=== PATIENT | female | born 1970 | race Caucasian/White ===

== ENCOUNTER 2016-12-06 21:18 | Emergency (ER) | payer OTHER ==
[~2016-12-06] VITALS: Ht 165.1 cm; Wt 76.5 kg
[2016-12-06 21:48] VITALS: TEMP 37.1; Ht 165.1 cm; Wt 76.5 kg
[2016-12-06] MEDS ORDERED: IBUP600T44 PO (22:04)
[2016-12-06] MEDS ORDERED: DEXAMETHASONE SOD INJ 10 MG/ML VIAL IV ONE (22:30)
[2016-12-06] MEDS ORDERED: METOCLOPRAMIDE HCL INJ 5 MG/ML 2 ML VIAL IV STA (22:30)
[2016-12-06] MEDS ORDERED: DiphenhydrAMINE HCL 50 MG/ML VIAL IV STA (22:30)
[2016-12-06] MEDS ORDERED: SODIUM CHLORIDE 0.9% 1000ML 1,000 ML IV STA (22:30)
--- NOTE | 2016-12-06 22:50 | DIAGNOSTIC IMAGING REPORT ---
CHEST ONE VIEW PORTABLE CLINICAL HISTORY: Atypical chest pain COMPARISON STUDY: 10/28/2016 FINDINGS: The cardiac and mediastinal contours are normal. There is no evidence of focal pulmonary consolidation. There is no evidence of failure. No pleural effusions are visualized.[ IMPRESSION: No active disease in the chest. Electronically signed by: Gilles Sotomayor M.D. 12/06/2016 10:48 PM Dictated Date/Time: 12/06/2016 10:48 PM
[2016-12-06 23:22] LABS: BASO % 0.2 %; BASO ABS # 0.02 K/uL (0-0.2); COMPLETE YES; EOS % 0.6 %; HEMATOCRIT 44.8 % (37-47); IG% 0.2 %; LYMPH ABS # 1.54 K/uL (1.2-3.4); MEAN CELL VOLUME 99.3 fL (80-100); MEAN CORPUSCULAR HEMOGLOBIN 34.8 pg (25-34); MEAN PLATELET VOLUME 9.6 fL (7.4-10.4); MONO % 6.7 %; NEUT % 73.3 %; PLATELET COUNT 300 K/uL (130-400); RED BLOOD COUNT 4.51 M/uL (4.2-5.4)
[2016-12-06 23:25] VITALS: O2SAT 97
[2016-12-06 23:43] LABS: ALT/SGPT 28 U/L (12-78); BLOOD UREA NITROGEN 19 mg/dl (7-18); BUN/CREATININE RATIO 20.5 (10-20); C-REACTIVE PROTEIN < 0.29 mg/dl (0-0.29); CALCIUM 8.8 mg/dl (8.5-10.1); CARBON DIOXIDE 24 mmol/L (21-32); CHLORIDE 104 mmol/L (98-107); CREATININE 0.94 mg/dl (0.60-1.20); GLUCOSE 114 mg/dl (70-99); MAGNESIUM 2.2 mg/dl (1.8-2.4); POTASSIUM 3.5 mmol/L (3.5-5.1); SODIUM 139 mmol/L (136-145)
[2016-12-06 23:46] LABS: ALKALINE PHOSPHATASE 100 U/L (45-117); AST/SGOT 18 U/L (15-37)
[2016-12-06] MEDS ORDERED: MoRPHine SULFATE 4 MG/ML 1 ML CARP\\VIAL IV STA (23:47)
[2016-12-06 23:52] LABS: PARTIAL THROMBOPLASTIN RATIO 0.9; PROTHROMBIN TIME (PATIENT) 10.4 SECONDS (9.0-12.0)
[2016-12-06] MEDS ORDERED: LABETALOL HCL IV 5 MG/ML 20ML IV STA (23:55)
--- NOTE | 2016-12-07 00:12 | EMERGENCY ROOM VISIT NOTE ---
ED Visit Note First contact with patient: 22:18 The patient was seen and examined with Sofya Barnes PA-C. I agree with the history, physical and findings. Please see the note for disposition and details. Clinically the patient is doing very well. She was significantly hypertensive. CT scan reveals a moderate subarachnoid hemorrhage. The patient' s mental status is surprisingly excellent. Her pain was controlled with IV narcotics. The patient had blood pressure managed with IV labetalol as well as IV hydralazine. The patient did require multiple doses. Her initial map was over 135. She had significant systolic blood pressure elevations as well as diastolic elevations. Her blood pressure was managed well with the incremental boluses. She had blood pressures that were better controlled into the 120-140 range systolic. Her maps were 110-120. [facility] was consulted. The patient was accepted in transfer. There was some delay in transfer secondary to include weather. The patient was frequently reassessed and was doing well. I have personally spent greater than 30 minutes of critical care time in the direct management of this patient. This includes bedside care, interpretation of diagnostic studies, and testing, discussion with the patient, consultations, and other required patient management activities. Impression: 1. Subarachnoid hemorrhage 2. Hypertensive emergency Disposition: Transfer to [facility] 12/06/16 23:05 Red Blood Count 4.51, Mean Corpuscular Volume 99.3, Mean Corpuscular Hemoglobin 34.8, Mean Corpuscular Hemoglobin Concent 35.0, Mean Platelet Volume 9.6, Neutrophils (%) (Auto) 73.3, Lymphocytes (%) (Auto) 19.0, Monocytes (%) (Auto) 6.7, Eosinophils (%) (Auto) 0.6, Basophils (%) (Auto) 0.2, Neutrophils # (Auto) 5.93, Lymphocytes # (Auto) 1.54, Monocytes # (Auto) 0.54, Eosinophils # (Auto) 0.05, Basophils # (Auto) 0.02 12/06/16 23:05 Test 12/06/16 23:05 White Blood Count 8.10 K/uL (4.8-10.8) Red Blood Count 4.51 M/uL (4.2-5.4) Hemoglobin 15.7 g/dL (12.0-16.0) Hematocrit 44.8 % (37-47) Mean Corpuscular Volume 99.3 fL (80-100) Mean Corpuscular Hemoglobin 34.8 pg (25-34) Mean Corpuscular Hemoglobin Concent 35.0 g/dl (32-36) Platelet Count 300 K/uL (130-400) Mean Platelet Volume 9.6 fL (7.4-10.4) Neutrophils (%) (Auto) 73.3 % Lymphocytes (%) (Auto) 19.0 % Monocytes (%) (Auto) 6.7 % Eosinophils (%) (Auto) 0.6 % Basophils (%) (Auto) 0.2 % Neutrophils # (Auto) 5.93 K/uL (1.4-6.5) Lymphocytes # (Auto) 1.54 K/uL (1.2-3.4) Monocytes # (Auto) 0.54 K/uL (0.11-0.59) Eosinophils # (Auto) 0.05 K/uL (0-0.5) Basophils # (Auto) 0.02 K/uL (0-0.2) RDW Standard Deviation 44.9 fL (36.4-46.3) RDW Coefficient of Variation 12.3 % (11.5-14.5) Immature Granulocyte % (Auto) 0.2 % Immature Granulocyte # (Auto) 0.02 K/uL (0.00-0.02) Erythrocyte Sedimentation Rate 19 mm/hr (0-21) Prothrombin Time 10.4 SECONDS (9.0-12.0) Prothromb Time International Ratio 1.0 (0.9-1.1) Activated Partial Thromboplast Time 24.5 SECONDS (21.0-31.0) Partial Thromboplastin Ratio 0.9 Anion Gap 11.0 mmol/L (3-11) Est Creatinine Clear Calc Drug Dose 77.3 ml/min Estimated GFR () 84.9 Estimated GFR (Non- 73.3 BUN/Creatinine Ratio 20.5 (10-20) Calcium Level 8.8 mg/dl (8.5-10.1) Magnesium Level 2.2 mg/dl (1.8-2.4) Total Bilirubin 0.4 mg/dl (0.2-1) Direct Bilirubin < 0.1 mg/dl (0-0.2) Aspartate Amino Transf (AST/SGOT) 18 U/L (15-37) Alanine Aminotransferase (ALT/SGPT) 28 U/L (12-78) Alkaline Phosphatase 100 U/L (45-117) Troponin I < 0.015 ng/ml (0-0.045) C-Reactive Protein < 0.29 mg/dl (0-0.29) Total Protein 8.2 gm/dl (6.4-8.2) Albumin 3.9 gm/dl (3.4-5.0) Vital Signs Past 12 Hours Date Time Temp Pulse Resp B/P Pulse Ox O2 Delivery O2 Flow Rate FiO2 12/07/16 03:36 73 12/07/16 03:01 62 18 122/74 91 Room Air 12/07/16 02:45 125/78 12/07/16 02:31 70 19 148/92 94 Room Air 12/07/16 02:15 71 17 126/75 95 Room Air 12/07/16 01:59 66 19 132/80 94 Room Air 12/07/16 01:52 153/96 12/07/16 01:30 71 16 148/106 93 Room Air 12/07/16 01:25 69 148/101 12/07/16 01:07 75 16 130/84 96 Room Air 12/07/16 00:43 147/88 12/07/16 00:32 75 12 149/97 95 Room Air 12/07/16 00:16 178/98 12/07/16 00:13 170/95 12/06/16 23:59 181/111 12/06/16 23:33 85 12/06/16 23:27 94 17 180/112 99 Room Air 12/06/16 23:25 97 Room Air 12/06/16 23:25 97 Room Air 12/06/16 21:48 37.1 113 19 145/107 97 Room Air
[2016-12-07] MEDS ORDERED: MoRPHine SULFATE 4 MG/ML 1 ML CARP\\VIAL IV STA ×3 (00:18→01:30)
--- NOTE | 2016-12-07 00:33 | EMERGENCY ROOM VISIT NOTE ---
History First contact with patient: 22:18 Chief Complaint: HEADACHE Stated Complaint: SEVERE HEADACHE SINCE12/04. SHOOTING PAIN UP SPINE W History of Present Illness The patient is a 46 year old female who presents to the Emergency Room with complaints of nausea, photophobia and severe headache for the past 3 days. Patient states she's not had a migraine since 18 years ago. This is different than her typical migraine. Patient states she was putting on her makeup when the headache started. She then tried some Motrin and Excedrin. She then went out drinking alcohol with her friends. Patient states next day the headache was much worse. She describes the headache as throbbing, ranging in severity 9 out of 10 to the right side of the face and head. Nothing makes it better or worse. Patient denies chest pain, dyspnea, fever, chills, cough, congestion, numbness, tingling, loss of vision, dental pain, neck pain, abdominal pain, localized weakness. Patient does not have a family care doctor. She's not seen a doctor in quite sometime. She smokes. Her sister had a stroke a few years ago. Review of Systems See HPI for pertinent positives & negatives. A total of 10 systems reviewed and were otherwise negative. Past Medical/Surgical History Surgical Problems: (1) H/O: hysterectomy Family History Cancer Gallbladder disease Hypertension Social History Smoking Status: Current Every Day Smoker Alcohol Use: occasionally Drug Use: none Housing Status: lives alone Occupation Status: employed Current/Historical Medications Scheduled PRN Ibuprofen (Motrin), 600-800 MG PO Q6H PRN for Pain Allergies Coded Allergies: No Known Allergies (Unverified , 04/25/14) Physical Exam Vital Signs Date Time Temp Pulse Resp B/P Pulse Ox O2 Delivery O2 Flow Rate FiO2 12/07/16 00:13 170/95 12/06/16 23:59 181/111 12/06/16 23:33 85 12/06/16 23:27 94 17 180/112 99 Room Air 12/06/16 23:25 97 Room Air 12/06/16 23:25 97 Room Air 12/06/16 21:48 37.1 113 19 145/107 97 Room Air Physical Exam VITALS: Vitals are noted on the nurse's note and reviewed by myself. Vital signs stable. GENERAL: Pleasant female who appears in pain, in no acute distress, nondiaphoretic, well-developed well-nourished. SKIN: The skin was without rashes, erythema, edema, or bruising. There is no tenting of the skin. Capillary reflex less than 2 seconds. HEAD: Normocephalic atraumatic. EARS: External auditory canals clear, tympanic membranes pearly cannon without erythema or effusion bilaterally. EYES: Pupils equal round and reactive to light and accommodation. Conjunctivae without injection, sclerae without icterus. Extraocular movements intact. NOSE: Patent, turbinates without inflammation or discharge. No sinus tenderness. MOUTH: Mucous membranes moist. Pharynx without erythema or exudate. Uvula midline. Airway patent. Tongue does not deviate. NECK: Supple without nuchal rigidity. No lymphadenopathy. No thyromegaly. Cervical spine is nontender. No JVD. HEART: Regular rate and rhythm without murmurs gallops or rubs. LUNGS: Clear to auscultation bilaterally without wheezes, rales or rhonchi. No dullness to percussion. No retractions or accessory muscle use. ABDOMEN: Positive bowel sounds x 4. Normal tympanic percussion. Soft, nontender, without masses or organomegaly. Shepherd sign negative. No guarding or rebound tenderness. MUSCULOSKELETAL: No muscle atrophy, erythema, or edema noted. NEURO: Patient was alert and oriented to person place and time. Normal sensation to light and sharp touch. No focal neurological deficits. Right occipital outflow track tender to palpation. Cranial nerves II-12 grossly intact. No pronator drift. Cerebellar exam intact. Medical Decision & Procedures Laboratory Results 12/06/16 23:05 Red Blood Count 4.51, Mean Corpuscular Volume 99.3, Mean Corpuscular Hemoglobin 34.8, Mean Corpuscular Hemoglobin Concent 35.0, Mean Platelet Volume 9.6, Neutrophils (%) (Auto) 73.3, Lymphocytes (%) (Auto) 19.0, Monocytes (%) (Auto) 6.7, Eosinophils (%) (Auto) 0.6, Basophils (%) (Auto) 0.2, Neutrophils # (Auto) 5.93, Lymphocytes # (Auto) 1.54, Monocytes # (Auto) 0.54, Eosinophils # (Auto) 0.05, Basophils # (Auto) 0.02 12/06/16 23:05 Test 12/06/16 23:05 White Blood Count 8.10 K/uL (4.8-10.8) Red Blood Count 4.51 M/uL (4.2-5.4) Hemoglobin 15.7 g/dL (12.0-16.0) Hematocrit 44.8 % (37-47) Mean Corpuscular Volume 99.3 fL (80-100) Mean Corpuscular Hemoglobin 34.8 pg (25-34) Mean Corpuscular Hemoglobin Concent 35.0 g/dl (32-36) Platelet Count 300 K/uL (130-400) Mean Platelet Volume 9.6 fL (7.4-10.4) Neutrophils (%) (Auto) 73.3 % Lymphocytes (%) (Auto) 19.0 % Monocytes (%) (Auto) 6.7 % Eosinophils (%) (Auto) 0.6 % Basophils (%) (Auto) 0.2 % Neutrophils # (Auto) 5.93 K/uL (1.4-6.5) Lymphocytes # (Auto) 1.54 K/uL (1.2-3.4) Monocytes # (Auto) 0.54 K/uL (0.11-0.59) Eosinophils # (Auto) 0.05 K/uL (0-0.5) Basophils # (Auto) 0.02 K/uL (0-0.2) RDW Standard Deviation 44.9 fL (36.4-46.3) RDW Coefficient of Variation 12.3 % (11.5-14.5) Immature Granulocyte % (Auto) 0.2 % Immature Granulocyte # (Auto) 0.02 K/uL (0.00-0.02) Erythrocyte Sedimentation Rate 19 mm/hr (0-21) Prothrombin Time 10.4 SECONDS (9.0-12.0) Prothromb Time International Ratio 1.0 (0.9-1.1) Activated Partial Thromboplast Time 24.5 SECONDS (21.0-31.0) Partial Thromboplastin Ratio 0.9 Anion Gap 11.0 mmol/L (3-11) Est Creatinine Clear Calc Drug Dose 77.3 ml/min Estimated GFR () 84.9 Estimated GFR (Non- 73.3 BUN/Creatinine Ratio 20.5 (10-20) Calcium Level 8.8 mg/dl (8.5-10.1) Magnesium Level 2.2 mg/dl (1.8-2.4) Total Bilirubin 0.4 mg/dl (0.2-1) Direct Bilirubin < 0.1 mg/dl (0-0.2) Aspartate Amino Transf (AST/SGOT) 18 U/L (15-37) Alanine Aminotransferase (ALT/SGPT) 28 U/L (12-78) Alkaline Phosphatase 100 U/L (45-117) Troponin I < 0.015 ng/ml (0-0.045) C-Reactive Protein < 0.29 mg/dl (0-0.29) Total Protein 8.2 gm/dl (6.4-8.2) Albumin 3.9 gm/dl (3.4-5.0) Medications Administered Medications (Trade) Dose Ordered Sig/Emmanuel Route Start Time Stop Time Status Last Admin Dose Admin Dexamethasone Sodium Phosphate (Decadron Inj) 10 mg NOW ONCE IV 12/06/16 22:30 12/06/16 22:32 DC 12/06/16 23:17 10 MG Metoclopramide HCl (Reglan Inj) 10 mg NOW STAT IV 12/06/16 22:30 12/06/16 22:33 DC 12/06/16 23:17 10 MG Diphenhydramine HCl 12.5 mg 12.5 mg NOW STAT IV 12/06/16 22:30 12/06/16 22:33 DC 12/06/16 23:17 12.5 MG Sodium Chloride (Nss 1000ml) 1,000 ml @ 125 mls/hr Q8H STAT IV 12/06/16 22:30 12/07/16 06:29 12/06/16 23:17 125 MLS/HR Morphine Sulfate (MoRPHine SULFATE INJ) 4 mg NOW STAT IV 12/06/16 23:47 12/06/16 23:49 DC 12/06/16 23:53 4 MG Labetalol HCl (Normodyne IV) 20 mg NOW STAT IV 12/06/16 23:55 12/06/16 23:56 DC 12/07/16 00:05 20 MG ED Course Prior records/ancillary studies reviewed. Additional history obtained from friend. Triage Nursing notes reviewed. The patient's history was concerning for headache. Differential diagnosis: Etiologies such as migraine headache, meningitis, sinusitis, CO exposure, ICH, SAH, infection, tumor, headache, sinus thrombosis, arterial dissection, as well as others were entertained. Physical examination findings: As above. Non-focal. ER treatment provided: Decadron, Reglan, Benadryl, morphine, labetalol, IV fluids On reassessment the patient felt better. Diagnostics interpreted by me: ECG: Normal sinus, normal intervals, no acute ST-T wave changes. Impression normal sinus rhythm interpreted by myself The labs revealed stable H&H. Negative troponin, normal coags Imaging studies: CHEST ONE VIEW PORTABLE CLINICAL HISTORY: Atypical chest pain COMPARISON STUDY: 10/28/2016 FINDINGS: The cardiac and mediastinal contours are normal. There is no evidence of focal pulmonary consolidation. There is no evidence of failure. No pleural effusions are visualized.[ IMPRESSION: No active disease in the chest. Electronically signed by: Gilles Sotomayor M.D. CT HEAD: Diffuse subarachnoid hemorrhage along the basal cisterns, interhemispheric fissure, and bilateral frontotemporal lobes. Consider CT angiogram for further evaluation. No mass effect or midline shift. No evidence of acute cortical infarct. Radiologist: Eileen Pérez M.D. Study ready at 23:47 and initial results transmitted at 23:57 Critical Value Communications Clear Time Type Notes 12/06/16 23:52 Call Doctor Regarding Consultation: A consultation was placed with the [place] neurosurgeon, Dr. Dias. The case was discussed and diagnostics were reviewed. He recommends that the patient be transferred to his facility. He is accepting transfer. Patient was transferred via helicopter to [facility]. Transfer paperwork was filled out. This appears to be consistent with subarachnoid hemorrhage. Patient agrees to treatment plan of transfer to higher care level facility for neurosurgical evaluation as we did not have this at our current facility. Patient was neurovascularly and neurologically intact. Her blood pressure did rise while in the ER and was given labetalol. She was feeling better after being medicated as above. She had no deficits on exam. She was transferred via ALS to [facility] in stable condition. 2 IV lines were initiated. All paperwork and test results and to their facility. By the evaluation outlined above emergent etiologies such as meningitis, sinusitis, CO exposure, infection, temporal arteritis, tumor, sinus thrombosis, arterial dissection, as well as others were deemed relatively unlikely. The pt informed about the findings as listed above. All questions were answered and pleased with the treatment. Case reviewed with my attending Medical Decision as above Impression Primary Impression: Subarachnoid hemorrhage Additional Impression: Hypertensive urgency Critical Care I have personally spent greater than 30 minutes of critical care time in the direct management of this patient. This includes bedside care, interpretation of diagnostic studies, and testing, discussion with consultants, patient, and family members, and other required patient management activities. This 30 minutes is in excess of all separately billable procedures. Departure Information Dispostion Transfer Acute Care Facility Condition FAIR Referrals No Doctor, Assigned (PCP) Patient Instructions My [facility] Problem Qualifiers
[2016-12-07] MEDS ORDERED: LABETALOL HCL IV 5 MG/ML 20ML IV STA ×2 (00:44→02:36)
[2016-12-07] MEDS ORDERED: HydrALAZINE HCL 20 MG/ML VIAL IV. STA ×2 (01:30→01:57)
[2016-12-07] MEDS ORDERED: HYDROmorphone INJ 0.5 MG/0.5 ML SYR IV STA (02:36)
[2016-12-07 03:54] VITALS: BP 131/80; PULSE 63; O2SAT 93
[2016-12-07] MEDS ORDERED: ONDANSETRON INJ 2 MG/ML 2 ML VIAL IV STA (04:08)
[2016-12-07] MEDS ORDERED: HYDROmorphone INJ 2 MG/ML SYR/VIAL IV STA (04:08)
--- NOTE | 2016-12-07 07:12 | DIAGNOSTIC IMAGING REPORT ---
CT SCAN OF THE BRAIN WITHOUT IV CONTRAST CLINICAL HISTORY: Headache. COMPARISON STUDY: No priors. TECHNIQUE: Unenhanced axial CT scan of the brain is performed from the vertex to the skull base. Automated dose control exposure was utilized. CT DOSE: 537.48 mGy.cm FINDINGS: Brain parenchyma: Findings are consistent with subarachnoid hemorrhage. There is blood filling the suprasellar and quadrigeminal plate cisterns as well as along the anterior interhemispheric fissure. Subarachnoid blood is also seen filling the sylvian fissures bilaterally and along the cortical sulci, greatest in the frontotemporal region. There is no parenchymal hematoma, mass effect, or evidence of acute territorial ischemia by CT criteria. Alt[place]irano-white matter is preserved. No extra-axial fluid collection is seen. Ventricles, sulci, cisterns: Normal in configuration. No intraventricular blood is identified. Intracranial vasculature: The visualized intracranial vasculature at the skull base is normal in appearance. Calvarium: Unremarkable. Sinuses and mastoids: The visualized paranasal sinuses are clear. The mastoid air cells are well pneumatized. Orbits: The bony orbits are grossly intact. IMPRESSION: 1. Extensive subarachnoid hemorrhage as above, centered in the suprasellar cistern. The appearance raises concern for ruptured aneurysm. Consider CT angiogram of the brain for further assessment. 2. There is no parenchymal hematoma, midline shift, or evidence of acute territorial ischemia by CT criteria. Electronically signed by: Kd Echevarria M.D. 12/07/2016 7:11 AM Dictated Date/Time: 12/07/2016 7:07 AM
== END 2016-12-07 04:20 | disposition short-term general hospital (02) ==
LOC: C.EDB 21:19 → C.EDA 12-07 04:20
DX: I60.9 Nontraumatic subarachnoid hemorrhage, unspecified (principal); I16.0 Hypertensive urgency; F17.200 Nicotine dependence, unspecified, uncomplicated; Z90.710 Acquired absence of both cervix and uterus

== ENCOUNTER 2017-08-13 17:54 | Emergency (ER) | payer OTHER ==
[~2017-08-13] VITALS: Ht 166.4 cm; Wt 75.9 kg
[~2017-08-13 17:54] MED LIST: IBUP600T44 PO
[2017-08-13 17:59] VITALS: Ht 166.4 cm; Wt 75.9 kg
[2017-08-13] MEDS ORDERED: IBUPROFEN 600 MG TAB PO STA (18:07)
[2017-08-13] MEDS ORDERED: ATOR-22 PO (18:15)
[2017-08-13] MEDS ORDERED: OXYCODONE/ACETAMINOPHEN 5-325 TAB PO ONE (18:15)
[2017-08-13] MEDS ORDERED: IBUP-1050 PO (18:15)
[2017-08-13] MEDS ORDERED: [UNRECOGNIZED DRUG - CODE] PO (18:15)
--- NOTE | 2017-08-13 18:35 | EMERGENCY ROOM VISIT NOTE ---
History First contact with patient: 18:04 Chief Complaint: FALL Stated Complaint: FELL, POSSBLE BROKE NOSE AND ARM History of Present Illness The patient is a 47 year old female who presents to the Emergency Room with complaints of a 47-year-old female who presents to the emergency department after a fall 2 days ago. The patient is a history of subdural hematoma and notes that she often has falls. She is currently being worked up for this. The patient is more concerned about her shoulder for which she is having a lot of pain. In addition she is also complaining of pain to her nose. She has a black eye. She is requesting pain medication. She denies any headache or neck pain. Review of Systems See HPI for pertinent positives & negatives. A total of 10 systems reviewed and were otherwise negative. Past Medical/Surgical History Surgical Problems: (1) H/O: hysterectomy SDH Family History Cancer Gallbladder disease Hypertension Social History Smoking Status: Current Every Day Smoker Alcohol Use: occasionally Drug Use: none Housing Status: lives alone Occupation Status: employed Current/Historical Medications Scheduled Atorvastatin (Lipitor), 20 MG PO QAM Nimodipine (Nimodipine), 60 MG PO Q6H Scheduled PRN Ibuprofen (Advil), 200-400 MG PO Q4H PRN for Pain Oxycodone Immediate Rel Tab (Roxicodone Ir), 1-2 TAB PO Q4H PRN for Severe Pain Physical Exam Vital Signs Date Time Temp Pulse Resp B/P (MAP) Pulse Ox O2 Delivery O2 Flow Rate FiO2 08/13/17 17:59 36.8 93 18 94/59 98 Room Air Physical Exam GENERAL: Patient is a healthy-appearing well-nourished female HEAD: Normocephalic, erythema to Rt eye, EYES: Ocular movements intact pupils equal and react to light OROPHARYNX mucous membranes are moist no exudates present no erythema or edema present NECK: Supple no nuchal rigidity CHEST: Good equal expansion LUNGS: Clear and equal to auscultation CARDIAC: Normal S1 and S2 ABDOMEN: Soft nontender no guarding BACK: No CVA tenderness, No neck or back midline pain EXTREMITIES: No pain upon palpation normal muscle strength in all groups no clubbing cyanosis or edema, Rt arm neurovascularly intact. Good ROM of wrist and elbow NEURO: Patient is following commands is answering questions appropriately. Alert and oriented x3 Cranial Nerves 2-12 grossly intact Medical Decision & Procedures ER Provider Diagnostic Interpretation: CT SCAN OF THE BRAIN WITHOUT IV CONTRAST CLINICAL HISTORY: Fall. Headache. COMPARISON STUDY: CT of the brain dated 12/06/2016. TECHNIQUE: Unenhanced axial CT scan of the brain is performed from the vertex to the skull base. A dose lowering technique was utilized adhering to the principles of ALARA. 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 There is no hemorrhage, mass effect, or evidence of acute territorial ischemia by CT criteria. [place]irano-white matter is preserved. No extra-axial fluid collection is seen. Ventricles, sulci, cisterns: Normal in configuration. Intracranial vasculature: The visualized intracranial vasculature at the skull base is normal in appearance. Calvarium: There is no depressed calvarial fracture. Soft tissues: There is a small right frontal scalp contusion. Sinuses and mastoids: The visualized paranasal sinuses are clear. The mastoid air cells are well pneumatized. Orbits: The bony orbits are grossly intact. IMPRESSION: 1. There is no hemorrhage, mass effect, or evidence of acute territorial ischemia by CT criteria. 2. 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 3. Small right frontal scalp contusion. No depressed calvarial fracture is seen. Electronically signed by: Kd Echevarria M.D. 08/13/2017 6:42 PM Dictated Date/Time: 08/13/2017 6:38 PM The status of this report is Signed. CT SCAN OF THE FACIAL BONES WITHOUT IV CONTRAST CLINICAL HISTORY: Fall. Facial pain. Headache. COMPARISON STUDY: CT of the brain performed concurrently on 08/13/2017. TECHNIQUE: High-resolution CT scan of the facial bones is performed. Images are reviewed in the axial, sagittal, and coronal planes. IV contrast was not administered for this examination. A dose lowering technique was utilized adhering to the principles of ALARA. CT DOSE: Reported separately under the concurrently performed CT scan of the brain. FINDINGS: The skeletal structures are well mineralized. There is no evidence of facial bone fracture. The bony orbits are intact and the orbital contents are within normal limits. The zygomatic arches, nasal bones, and pterygoid plates are preserved. The maxilla and mandible are intact. There are no layering blood products within the paranasal sinuses. The sinuses and mastoids are clear. The visualized calvarium and upper cervical spine are maintained. An aneurysm clip is seen in the suprasellar region. Partially imaged brain parenchyma is within normal limits. There is minimal right frontal scalp contusion. IMPRESSION: There is no evidence of facial bone fracture. Electronically signed by: Kd Echevarria M.D. 08/13/2017 6:56 PM Dictated Date/Time: 08/13/2017 6:50 PM RIGHT SHOULDER 3 VIEWS; RIGHT HUMERUS 2 VIEWS CLINICAL HISTORY: Fall with right arm pain. FINDINGS: 3 views of the right shoulder with AP and lateral views of the right humerus are obtained. No prior studies are available for comparison at the time of dictation. The skeletal structures are osteopenic. There is an impacted and comminuted fracture through the right humeral neck which extends to through the lateral aspect of the humeral head. No additional fracture is seen. The distal humerus is intact. The glenohumeral articulation is preserved. Minimal degenerative change is seen at the acromioclavicular joint. The elbow joint is grossly maintained. Soft tissue edema is present around the fracture. The visualized right lung parenchyma appears clear. IMPRESSION: 1. There is an impacted fracture through the right humeral neck which extends through the humeral head. 2. No additional fracture is seen. No dislocation is identified. Electronically signed by: Kd Echevarria M.D. 08/13/2017 7:23 PM Dictated Date/Time: 08/13/2017 7:21 PM RIGHT SHOULDER 3 VIEWS; RIGHT HUMERUS 2 VIEWS CLINICAL HISTORY: Fall with right arm pain. FINDINGS: 3 views of the right shoulder with AP and lateral views of the right humerus are obtained. No prior studies are available for comparison at the time of dictation. The skeletal structures are osteopenic. There is an impacted and comminuted fracture through the right humeral neck which extends to through the lateral aspect of the humeral head. No additional fracture is seen. The distal humerus is intact. The glenohumeral articulation is preserved. Minimal degenerative change is seen at the acromioclavicular joint. The elbow joint is grossly maintained. Soft tissue edema is present around the fracture. The visualized right lung parenchyma appears clear. IMPRESSION: 1. There is an impacted fracture through the right humeral neck which extends through the humeral head. 2. No additional fracture is seen. No dislocation is identified. Electronically signed by: Kd Echevarria M.D. 08/13/2017 7:23 PM Dictated Date/Time: 08/13/2017 7:21 PM Medications Administered Medications (Trade) Dose Ordered Sig/Emmanuel Route Start Time Stop Time Status Last Admin Dose Admin Ibuprofen (Motrin Tab) 600 mg NOW STAT PO 08/13/17 18:07 08/13/17 18:09 DC 08/13/17 18:46 600 MG Oxycodone/ Acetaminophen (Percocet 5-325mg Tab) 2 tab NOW ONCE PO 08/13/17 18:15 08/13/17 18:16 DC 08/13/17 18:47 2 TAB Oxycodone HCl (Roxicodone Immediate Rel 5MG Home Pack) 1 homepack UD ONCE PO 08/13/17 19:15 08/13/17 19:16 DC 08/13/17 19:21 1 HOMEPACK Medical Decision This is a 47-year-old female who presents emergency department complaining of a fall at home 2 days ago. Patient is complaining of right shoulder pain along with nose pain. She was given ibuprofen as well as Percocet for the pain. She was sent for CAT scan of the facial bones as well as the head. In addition she was also received x-rays of her humerus as well as her shoulder. Repeat examination revealed much improvement the patient's symptoms. I will place the patient shoulder mobilizer and stressed the need for follow-up with orthopedics. The patient is going to follow-up with Dr. saunders in [place] on Tuesday morning. I stressed to the patient take Tylenol as well as Oxy for the pain. Patient was in agreement with the treatment plan. Medication Reconcilliation Current Medication List: was personally reviewed by me Blood Pressure Screening Patient's blood pressure: Low blood pressure Impression Primary Impression: Fall Additional Impression: Fracture of humeral head, right, closed Departure Information Prescriptions Oxycodone Immediate Rel Tab (ROXICODONE IR) 5 Mg Tab 1-2 TAB PO Q4H Y for Severe Pain, #14 TAB Prov: Jarrell Resendez MD 08/13/17 Referrals No Doctor, Assigned (PCP) Patient Instructions [facility] Problem Qualifiers Primary Impression: Fall Encounter type: initial encounter Qualified Codes: W19.XXXA - Unspecified fall, initial encounter Additional Impression: Fracture of humeral head, right, closed Encounter type: initial encounter Qualified Codes: S42.291A - Other displaced fracture of upper end of right humerus, initial encounter for closed fracture
--- NOTE | 2017-08-13 18:44 | DIAGNOSTIC IMAGING REPORT ---
CT SCAN OF THE BRAIN WITHOUT IV CONTRAST CLINICAL HISTORY: Fall. Headache. COMPARISON STUDY: CT of the brain dated 12/06/2016. TECHNIQUE: Unenhanced axial CT scan of the brain is performed from the vertex to the skull base. A dose lowering technique was utilized adhering to the principles of ALARA. 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 There is no hemorrhage, mass effect, or evidence of acute territorial ischemia by CT criteria. [place]irano-white matter is preserved. No extra-axial fluid collection is seen. Ventricles, sulci, cisterns: Normal in configuration. Intracranial vasculature: The visualized intracranial vasculature at the skull base is normal in appearance. Calvarium: There is no depressed calvarial fracture. Soft tissues: There is a small right frontal scalp contusion. Sinuses and mastoids: The visualized paranasal sinuses are clear. The mastoid air cells are well pneumatized. Orbits: The bony orbits are grossly intact. IMPRESSION: 1. There is no hemorrhage, mass effect, or evidence of acute territorial ischemia by CT criteria. 2. 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 3. Small right frontal scalp contusion. No depressed calvarial fracture is seen. Electronically signed by: Kd Echevarria M.D. 08/13/2017 6:42 PM Dictated Date/Time: 08/13/2017 6:38 PM
--- NOTE | 2017-08-13 18:57 | DIAGNOSTIC IMAGING REPORT ---
CT SCAN OF THE FACIAL BONES WITHOUT IV CONTRAST CLINICAL HISTORY: Fall. Facial pain. Headache. COMPARISON STUDY: CT of the brain performed concurrently on 08/13/2017. TECHNIQUE: High-resolution CT scan of the facial bones is performed. Images are reviewed in the axial, sagittal, and coronal planes. IV contrast was not administered for this examination. A dose lowering technique was utilized adhering to the principles of ALARA. CT DOSE: Reported separately under the concurrently performed CT scan of the brain. FINDINGS: The skeletal structures are well mineralized. There is no evidence of facial bone fracture. The bony orbits are intact and the orbital contents are within normal limits. The zygomatic arches, nasal bones, and pterygoid plates are preserved. The maxilla and mandible are intact. There are no layering blood products within the paranasal sinuses. The sinuses and mastoids are clear. The visualized calvarium and upper cervical spine are maintained. An aneurysm clip is seen in the suprasellar region. Partially imaged brain parenchyma is within normal limits. There is minimal right frontal scalp contusion. IMPRESSION: There is no evidence of facial bone fracture. Electronically signed by: Kd Echevarria M.D. 08/13/2017 6:56 PM Dictated Date/Time: 08/13/2017 6:50 PM
[2017-08-13] MEDS ORDERED: OXYCODONE IR HOME PACK PO ONE (19:15)
[2017-08-13] MEDS ORDERED: OXYC1TAB3 PO (19:19)
--- NOTE | 2017-08-13 19:24 | DIAGNOSTIC IMAGING REPORT ---
RIGHT SHOULDER 3 VIEWS; RIGHT HUMERUS 2 VIEWS CLINICAL HISTORY: Fall with right arm pain. FINDINGS: 3 views of the right shoulder with AP and lateral views of the right humerus are obtained. No prior studies are available for comparison at the time of dictation. The skeletal structures are osteopenic. There is an impacted and comminuted fracture through the right humeral neck which extends to through the lateral aspect of the humeral head. No additional fracture is seen. The distal humerus is intact. The glenohumeral articulation is preserved. Minimal degenerative change is seen at the acromioclavicular joint. The elbow joint is grossly maintained. Soft tissue edema is present around the fracture. The visualized right lung parenchyma appears clear. IMPRESSION: 1. There is an impacted fracture through the right humeral neck which extends through the humeral head. 2. No additional fracture is seen. No dislocation is identified. Electronically signed by: Kd Echevarria M.D. 08/13/2017 7:23 PM Dictated Date/Time: 08/13/2017 7:21 PM
[2017-08-13 19:30] VITALS: BP 101/57; PULSE 89; TEMP 36.8; O2SAT 98
== END 2017-08-13 19:31 | disposition home or self-care (01) ==
LOC: C.EDB 17:56
DX: S42.291A Other displaced fracture of upper end of right humerus, initial encounter for closed fracture (principal); W19.XXXA Unspecified fall, initial encounter; F17.200 Nicotine dependence, unspecified, uncomplicated; Z87.820 Personal history of traumatic brain injury; Z90.710 Acquired absence of both cervix and uterus; Z82.49 Family history of ischemic heart disease and other diseases of the circulatory system